=== PATIENT | male | born 1965 | race Caucasian/White ===

== ENCOUNTER 2020-04-19 08:40 | Day surgery (SDC) | payer OTHER ==
[2020-04-14 14:02] VITALS: BMI 24.7
--- OUTSIDE RECORDS SUMMARY | 2020-04-19 08:44 | XMS ---
:1965 Author Organization [facility] Support Name Relationship Address Phone [employer] Unavailable [address] [phone] [place] [address] [place] [address] UNK Unavailable Unavailable Unavailable SHERRIE ATKINSON Unavailable [address] [facility] [place] [address] Re-disclosure Warning The records that you are about to access may contain information from federally- assisted alcohol or drug abuse programs. If such information is present, then the following federally mandated warning applies: This information has been disclosed to you from records protected by federal confidentiality rules (42 CFR part 2). The federal rules prohibit you from making any further disclosure of this information unless further disclosure is expressly permitted by the written consent of the person to whom it pertains or as otherwise permitted by 42 CFR part 2. A general authorization for the release of medical or other information is NOT sufficient for this purpose. The Federal rules restrict any use of the information to criminally investigate or prosecute any alcohol or drug abuse patient.The records that you are about to access may contain highly sensitive health information, the redisclosure of which is protected by Article 27-F of the [facility] Public Health law. If you continue you may haveaccess to information: Regarding HIV / AIDS; Provided by facilities licensed or operated by the [facility] Office of Mental Health; or Provided by the [facility] Office for People With Developmental Disabilities. If such information is present, then the following [facility] mandated warning applies: This information has been disclosed to you from confidential records which are protected by state law. State law prohibits you from making any further disclosure of this information without the specific written consent of the person to whom it pertains, or as otherwise permitted by law. Any unauthorized further disclosure in violation of state law may result in a fine or senior care sentence or both. A general authorization for the release of medical or other information is NOT sufficient authorization for further disclosure. Allergies and Adverse Reactions Type Description Substance Reaction Status Data Source(s ) No Information No Information No Information eC W2 ([facility] ) No Information No Information No Information eC W2 ([facility] ) Encounters Encounter Providers Location Date Indications Data Source(s ) [place] [facility] [place] [facility] 04/03/2018 eCW 2 ([facility] 12:00:00 AM [facility]) [place] [facility] [place] [facility] 04/02/2018 eCW 2 ([facility] 12:00:00 AM [facility]) [place] [facility] [place] [facility] 08/27/2017 eCW 2 ([facility] 12:00:00 AM [facility]) [place] [facility] [place] [facility] 07/08/2017 eCW 2 ([facility] 12:00:00 AM [facility]) [place] [facility] [place] [facility] 04/03/2017 eCW 2 ([facility] 12:00:00 AM [facility]) [place] [facility] [place] [facility] 04/03/2017 eCW 2 ([facility] 12:00:00 AM [facility]) [place] [facility] [place] [facility] 04/02/2017 eCW 2 ([facility] 12:00:00 AM [facility]) [place] [facility] [place] [facility] 04/01/2017 eCW 2 ([facility] 12:00:00 AM [facility]) Immunizations Vaccine Date Status Description Data Source(s) No Known Immunizations completed eCW2 ([facility]) No Known Immunizations completed eCW2 ([facility]) Medications Medication Brand Start Product Dose Route Administrative Pharmacy St atus Indications Reaction Description Data Name Date Form Instructions Instructions Source(s) Unknown complet eCW2 ([facility] n Medications ed [facility]) Unknown complet eCW2 (Ope n Medications [facility]) Insurance Providers Payer name Policy type Policy ID Covered Covered libertarian's Policy P ruby / Coverage libertarian ID relationship to [employer] Inf ormation type phipps [facility], [facility] [id number] HEALTH NON CAP Problems, Conditions, and Diagnoses Code Display Name Description Problem Type Effective Data Sour ce(s) Dates E78.2 Mixed hyperlipidemia Mixed Problem 04/03/2017 eCW2 (Open hyperlipidemia 12:00:00 AM [facility]) I10 Essential Essential Problem 04/01/2017 eCW2 (Open hypertension hypertension 12:00:00 AM [facility]) Surgeries/Procedures Procedure Description Date Indications Data Source(s) No Known procedures No Known procedures e CW2 ([facility]) No Known procedures No Known procedures e CW2 ([facility]) Results ID Date Data Source [id number] 04/14/2020 09:33:00 AM EDT [facility] Name Value Range Interpretation Description Data Sup porting Code Source(s) Document(s ) SARS [facility] coronavirus 2 RNA This lab was ordered by ANTONIO SMITH and reported by [facility]. ID Date Data Source [id number] 04/11/2020 12:00:00 AM EDT [facility] Name Value Range Interpretation Code Description Data Estefani rce(s) Supporting Document(s ) V [facility] RNA XXX LITO+probe- Imp This lab was ordered by [employer] and reported by [facility] ID Date Data Source [id number] 04/04/2020 12:00:00 AM EDT [facility] Name Value Range Interpretation Code Description Data Estefani rce(s) Supporting Document(s ) nCoV [facility] RNA XXX LITO+probe- Imp This lab was ordered by [employer] and reported by [facility] ID Date Data Source [id number] 03/25/2020 12:00:00 AM EDT [facility] Name Value Range Interpretation Code Description Data Estefani rce(s) Supporting Document(s ) nCoV [facility] RNA XXX LITO+probe- Imp This lab was ordered by [employer] and reported by [facility] ID Date Data Source [id number] 03/21/2020 12:00:00 AM EDT [facility] Name Value Range Interpretation Code Description Data Estefani rce(s) Supporting Document(s ) 2019-nCoV [facility] RNA XXX LITO+probe- Imp This lab was ordered by [employer] P [facility]JES[facility] and reported by [employer] ID Date Data Source [id number] 02/19/2020 12:00:00 AM EDT [facility] Name Value Range Interpretation Code Description Data Estefani rce(s) Supporting Document(s ) nCoV [facility] RNA XXX LITO+probe- Imp This lab was ordered by [employer] P UENTES and reported by [employer] ID Date Data Source [id number] 02/15/2020 12:00:00 AM EDT [facility] Name Value Range Interpretation Code Description Data Estefani rce(s) Supporting Document(s ) nCoV [facility] RNA XXX LITO+probe- Imp This lab was ordered by [employer] P UJESSS and reported by [employer] ID Date Data Source [id number] 02/12/2020 12:00:00 AM EDT [facility] Name Value Range Interpretation Code Description Data Estefani rce(s) Supporting Document(s ) nCoV [facility] RNA XXX LITO+probe- Imp This lab was ordered by [employer] P UJESSS and reported by [employer] ID Date Data Source [id number] 02/05/2020 12:00:00 AM EDT [facility] Name Value Range Interpretation Code Description Data Estefani rce(s) Supporting Document(s ) nCoV [facility] RNA XXX LITO+probe- Imp This lab was ordered by [employer] P UJESSS and reported by [employer] ID Date Data Source [id number] 01/25/2020 12:00:00 AM EDT [facility] Name Value Range Interpretation Code Description Data Estefani rce(s) Supporting Document(s ) nCoV [facility] RNA XXX LITO+probe- Imp This lab was ordered by [employer] P [facility]ENT[facility] and reported by [employer] ID Date Data Source [id number] 01/15/2020 12:00:00 AM EDT [facility] Name Value Range Interpretation Code Description Data Estefani rce(s) Supporting Document(s ) nCoV [facility] RNA XXX LITO+probe- Imp This lab was ordered by [employer] P UJESSS and reported by [employer] ID Date Data Source [id number] 01/12/2020 12:00:00 AM EDT [facility] Name Value Range Interpretation Code Description Data Estefani rce(s) Supporting Document(s ) nCoV [facility] RNA XXX LITO+probe- Imp This lab was ordered by [employer] [facility]ENT[employer] and reported by [employer] ID Date Data Source [id number] 01/08/2020 12:00:00 AM EDT [facility] Name Value Range Interpretation Code Description Data Estefani rce(s) Supporting Document(s ) nCoV [facility] RNA XXX LITO+probe- Imp This lab was ordered by [employer] P UJESSS and reported by [employer] ID Date Data Source [id number] 01/04/2020 12:00:00 AM EDT [facility] Name Value Range Interpretation Code Description Data Estefani rce(s) Supporting Document(s ) nCoV [facility] RNA XXX LITO+probe- Imp This lab was ordered by [employer] P [employer]JES[employer] and reported by [employer] ID Date Data Source [id number] 01/04/2020 12:00:00 AM EDT [facility] Name Value Range Interpretation Code Description Data Estefani rce(s) Supporting Document(s ) nCoV [facility] RNA XXX LITO+probe- Imp This lab was ordered by [employer] P UJESSS and reported by [employer] ID Date Data Source [id number] 12/28/2019 12:00:00 AM EDT [facility] Name Value Range Interpretation Code Description Data Estefani rce(s) Supporting Document(s ) nCoV [facility] RNA XXX LITO+probe- Imp This lab was ordered by [employer] [facility] and reported by [employer] ID Date Data Source [id number] 12/25/2019 12:00:00 AM EDT [facility] Name Value Range Interpretation Code Description Data Estefani rce(s) Supporting Document(s ) nCoV [facility] RNA XXX LITO+probe- Imp This lab was ordered by [employer] and reported by [facility]. ID Date Data Source [id number] 12/21/2019 12:00:00 AM EDT [facility] Name Value Range Interpretation Code Description Data Estefani rce(s) Supporting Document(s ) nCoV [facility] RNA XXX LITO+probe- Imp This lab was ordered by [employer] [facility]VI and reported by [employer]. ID Date Data Source [id number] 12/19/2019 12:00:00 AM EDT [facility] Name Value Range Interpretation Code Description Data Estefani rce(s) Supporting Document(s ) [facility] RNA XXX LITO+probe- Imp This lab was ordered by [employer] Brittney UTANVI and reported by [employer]. ID Date Data Source [id number] 12/12/2019 12:00:00 AM EDT [facility] Name Value Range Interpretation Code Description Data Estefani rce(s) Supporting Document(s ) [facility] RNA XXX LITO+probe- Imp This lab was ordered by [employer] Wedit UTANVI and reported by [facility]. Procedure Social History Code Duration Value Status Description Data Source(s ) Smoking Unknown if ever completed Unknown if ever eCW2 ([facility] smoked smoked [facility]) Smoking Unknown if ever completed Unknown if ever eCW2 ([facility] smoked smoked [facility])
[2020-04-19] MEDS ORDERED: KETOROLAC TROMETHAMINE 0.5% EYE DROP 1 DROP DROPS ONE (08:51)
[2020-04-19] MEDS ORDERED: TROPICAMIDE 1% OPHTH SOLN 15 ML BOTTLE ONE (08:51)
[2020-04-19] MEDS ORDERED: PHENYLEPHRINE 2.5% OPHTH SOLN 15 ML BOTTLE ONE (08:51)
[2020-04-19] MEDS ORDERED: CYCLOPENTOLATE HCL 1% OPHTH SOLN 2 ML BOTTLE ONE (08:51)
[2020-04-19] MEDS ORDERED: OFLOXACIN 0.3% OPHTHALMIC SOLUTION 5 ML BOTTLE ONE (08:51)
[2020-04-19] MEDS: CYCLOPENTOLATE HCL 1% OPHTH SOLN 2 ML BOTTLE OS SCH ×5 (09:05→09:25)
[2020-04-19] MEDS: OFLOXACIN 0.3% OPHTHALMIC SOLUTION 5 ML BOTTLE OS SCH ×5 (09:05→09:25)
[2020-04-19] MEDS: TROPICAMIDE 1% OPHTH SOLN 15 ML BOTTLE OS SCH ×5 (09:05→09:25)
[2020-04-19] MEDS: KETOROLAC TROMETHAMINE 0.5% EYE DROP 1 DROP DROPS OS SCH ×5 (09:05→09:25)
[2020-04-19] MEDS: PHENYLEPHRINE 2.5% OPHTH SOLN 15 ML BOTTLE OS SCH ×5 (09:05→09:25)
[2020-04-19 09:09] VITALS: TEMP 98
[2020-04-19] MEDS ORDERED: MIDAZOLAM HCL 2 MG/2 ML SINGLE DOSE VIAL ONE (10:24)
[2020-04-19] MEDS ORDERED: ACETAMINOPHEN 325 MG TABLET (FP) PO PRN (12:05)
--- NOTE | 2020-04-19 12:35 | OP ---
DATE OF OPERATION: 04/19/2020 PREOPERATIVE DIAGNOSIS: Cataract, left eye. POSTOPERATIVE DIAGNOSIS: Cataract, left eye, miotic pupil. PROCEDURE: Cataract extraction via phacoemulsification with insertion of posterior chamber lens implant, left eye, use of iris hooks. SURGEON: Omkar Diaz MD ASSOCIATE PROFESSOR OF HISTORY: Yasmeen Becker MD ANESTHESIA: Topical with sedation. ESTIMATED BLOOD LOSS: Less than 1 mL. COMPLICATIONS: None. SPECIMENS: None. PROCEDURE: The patient was identified in the holding area. After all risks, benefits and alternatives were explained to the patient, informed consent was obtained. The left eye was marked with a marking pen. The patient then entered the operating room on an eye stretcher. After a formal timeout was performed, topical tetracaine eye drops were instilled onto the left eye. Left eye was then prepped and draped in usual sterile fashion. An eyelid speculum was placed beneath the eyelids of the left eye. Upon inspection it was noted to me that the pupil was miotic. Therefore, an inferotemporal paracentesis incision was created using a 15-degree blade. Topical preservative-free epinephrine and preservative-free lidocaine were then injected into the anterior chamber. The pupil still did not dilate fully. It was still at about 4 mm. Therefore, 4 equally spaced paracentesis incisions were created using 15-degree blade and iris hooks were inserted through each of the 4 paracentesis incisions to capture and dilate the pupil to about 6.5 mm. Then, viscoelastic was injected into the anterior chamber. A 2.4-mm keratome blade was then used to make a superotemporal incision. A 360-degree continuous curvilinear capsulorrhexis was then created using bent cystotome and Utrata forceps. Hydrodissection was performed using balanced saline solution on a cannula. Phacoemulsification was introduced. It disassembled and removed the nucleus in its entirety. Irrigation/aspiration was then used to remove any remaining cortical material from the eye. The capsular bag was reformed using viscoelastic. An Lambert model [id number] with a power of 18.5 diopters, serial number [id number] was inspected, found to be defect free and injected in the capsular bag. Irrigation/aspiration was then used to remove any remaining viscoelastic from the eye. All iris hooks were then removed from the eye totaling 4, and then another round of irrigation/aspiration was performed to clear any remaining debris from the eye. All wounds were hydrated with balanced saline solution, noted to be watertight. The anterior chamber was deep. The lens was perfectly centered in the capsular bag. There was a red reflex and the eye had adequate pressure. Topical antibiotic eye drops and ointment were then administered to the left eye. The eyelid speculum was removed from the left eye. Left eye was shielded. Patient tolerated the procedure well, left the operating room in stable condition, to follow up in the eye clinic tomorrow morning at 10 o'clock. OMKAR DIAZ M.D. [id number]
[2020-04-19 12:59] VITALS: BP 141/82; PULSE 78
== END 2020-04-19 12:30 | disposition home or self-care (01) ==
LOC: FASU 08:40
PROVIDERS: ATTEND Ophthalmology
PROC: 08RK3JZ Replacement of Left Lens with Synthetic Substitute, Percutaneous Approach (ICD-10-PCS; principal; 2020-04-19 10:53)
DX: H26.9 Unspecified cataract (principal); H57.03 Miosis

== ENCOUNTER 2020-08-16 08:19 | Day surgery (SDC) | payer OTHER ==
[2020-08-09 14:56] VITALS: BMI 27.3
[2020-08-16] MEDS ORDERED: CYCLOPENTOLATE HCL 1% OPHTH SOLN 2 ML BOTTLE ONE (08:25)
[2020-08-16] MEDS ORDERED: OFLOXACIN 0.3% OPHTHALMIC SOLUTION 5 ML BOTTLE ONE (08:25)
[2020-08-16] MEDS ORDERED: KETOROLAC TROMETHAMINE 0.5% EYE DROP 1 DROP DROPS ONE (08:26)
[2020-08-16] MEDS ORDERED: PHENYLEPHRINE 2.5% OPHTH SOLN 15 ML BOTTLE ONE (08:26)
[2020-08-16] MEDS ORDERED: TROPICAMIDE 1% OPHTH SOLN 15 ML BOTTLE ONE (08:26)
[2020-08-16] MEDS: PHENYLEPHRINE 2.5% OPHTH SOLN 15 ML BOTTLE OD SCH ×5 (08:45→09:05)
[2020-08-16] MEDS: OFLOXACIN 0.3% OPHTHALMIC SOLUTION 5 ML BOTTLE OD SCH ×5 (08:45→09:05)
[2020-08-16] MEDS: KETOROLAC TROMETHAMINE 0.5% EYE DROP 1 DROP DROPS OD SCH ×5 (08:45→09:05)
[2020-08-16] MEDS: CYCLOPENTOLATE HCL 1% OPHTH SOLN 2 ML BOTTLE OD SCH ×5 (08:45→09:05)
[2020-08-16] MEDS: TROPICAMIDE 1% OPHTH SOLN 15 ML BOTTLE OD SCH ×5 (08:45→09:05)
[2020-08-16] MEDS ORDERED: EPI-SHUGARCAINE (EPINEPHRINE 0.025% & LIDOCAINE-PF 0.75%) 4ML ONE (10:30)
[2020-08-16] MEDS ORDERED: TETRACAINE 0.5% OPHTH SOLN 2 ML BOTTLE ONE (10:30)
[2020-08-16] MEDS ORDERED: BETAXOLOL HCL 0.25% OPHTHALMIC 10 ML DROPSBTL ONE (10:30)
[2020-08-16] MEDS ORDERED: POVIDONE-IODINE 5% OPHTHALMIC PREP 30 ML SOLUTION ONE (10:30)
[2020-08-16] MEDS ORDERED: BACITRACIN/POLYMYXIN OPH OINT 3.5 GM TUBE ONE (10:30)
[2020-08-16] MEDS ORDERED: NEO/POLYMYX B SULF/DEXAMETH OPHTHALMIC 5ML BOTTLE ONE (10:31)
[2020-08-16] MEDS ORDERED: MIDAZOLAM HCL 2 MG/2 ML SINGLE DOSE VIAL ONE (10:42)
[2020-08-16] MEDS ORDERED: ACETAMINOPHEN 325 MG TABLET (FP) PO PRN (11:49)
[2020-08-16 12:23] VITALS: TEMP 98.2
[2020-08-16 12:33] VITALS: BP 142/77; PULSE 92
== END 2020-08-16 12:30 | disposition home or self-care (01) ==
LOC: FASU 08:19
PROVIDERS: ATTEND Ophthalmology
PROC: 08RJ3JZ Replacement of Right Lens with Synthetic Substitute, Percutaneous Approach (ICD-10-PCS; principal; 2020-08-16 11:03)
DX: H26.9 Unspecified cataract (principal); H57.03 Miosis